=== PATIENT | male | born 1970 | race Caucasian/White ===

== ENCOUNTER 2023-06-07 19:20 | Inpatient (IN) | payer MEDICAID ==
[~2023-06-07] VITALS: Ht 177.8 cm; Wt 99.3 kg
[2023-06-08 00:58] LABS: HEMATOCRIT. 27.1 % (42.0-52.0); HEMOGLOBIN. 8.8 g/dL (14.0-18.0); MEAN CORPUSCULAR HEMOGLOBIN 27.7 pg (28.0-32.0); MEAN CORPUSCULAR HGB CONC 32.5 g/dL (31.0-37.0); MEAN CORPUSCULAR VOLUME 85.4 fL (80.0-94.0); MEAN PLATELET VOLUME 6.8 fl (7.4-10.4); PLATELET 644 x1000/uL (130-400); RED BLOOD CELL COUNT 3.17 mill/uL (4.7-6.1); RED CELL DISTRIBUTION WIDTH 14.8 % (11.6-14.6); WHITE BLOOD COUNT 36.5 x1000/uL (4.5-11.0)
[2023-06-08] MEDS: HYDROCODONE/ACETAMINOPHEN 5/325MG TABLET PO NR (01:04)
[2023-06-08 01:05] LABS: ALANINE AMINOTRANSFERASE 38 IU/L (10-49); ALBUMIN 2.4 g/dL (3.2-4.8); ASPARTATE AMINOTRANSFERASE 57 IU/L (<34); BILIRUBIN TOTAL 0.3 mg/dL (0.1-1.0); CALCIUM 7.9 mg/dL (8.7-10.4); CARBON DIOXIDE 28 mEq/L (21-32); CHLORIDE 96 mEq/L (98-107); CREATININE 0.6 mg/dL (0.6-1.3); GLUCOSE 116 mg/dL (70-105); POTASSIUM 3.2 mEq/L (3.5-5.1); SODIUM 128 mEq/L (136-145); UREA NITROGEN BLOOD 13 mg/dL (9-23)
[2023-06-08 01:10] LABS: DIFFERENTIAL COMMENT 1
[2023-06-08] MEDS ORDERED: PIPERACILLIN/TAZO 3.375G/50ML 50 ML IV SCH ×2 (01:15→14:00)
[2023-06-08 02:26] LABS: CREATINE KINASE 396 IU/L (46-171)
[2023-06-08 02:29] LABS: INR 1.1; PROTHROMBIN TIME 12.5 sec (9.6-11.0)
[2023-06-08 02:38] LABS: ETHANOL BLOOD < 10 mg/dL (<10)
[2023-06-08] MEDS: PIPERACILLIN/TAZO 3.375G/50ML 50 ML IV SCH ×2 (04:45→17:51)
[2023-06-08 05:29] LABS: PLATELET ESTIMATE INCREASED
[2023-06-08] MEDS: VANCOMYCIN 1G PREMIX 200 ML IV SCH (05:34)
[2023-06-08] MEDS: KETOROLAC 30MG/ML VIAL IV NR (06:35)
[2023-06-08] MEDS: KETOROLAC 30MG/ML VIAL IV STA (06:35)
[2023-06-08] MEDS: ONDANSETRON HCL 4MG/2ML INJ IV STA (06:36)
[2023-06-08 09:48] LABS: CLARITY URINE CLEAR (CLEAR); COLOR URINE YELLOW (YELLOW); GLUCOSE URINE NEGATIVE (NEGATIVE); KETONES URINE NEGATIVE (NEGATIVE); LEUKOCYTE ESTERASE URINE NEGATIVE (NEGATIVE); NITRITE URINE NEGATIVE (NEGATIVE); OCCULT BLOOD URINE 1+ (NEGATIVE); PROTEIN URINE NEGATIVE (NEGATIVE); SPECIFIC GRAVITY URINE 1.008 (1.005-1.030)
[2023-06-08 10:15] LABS: SQUAMOUS EPITHELIAL CELL URINE FEW /lpf (RARE/1+); WBC URINE 0-2 /hpf (0-2)
[2023-06-08 10:16] LABS: BACTERIA URINE TRACE; RBC URINE 0-2 /hpf (0-2)
[2023-06-08] MEDS ORDERED: ONDANSETRON HCL 4MG/2ML INJ IV PRN (10:30)
[2023-06-08] MEDS ORDERED: ACETAMINOPHEN 325MG TABLET PO PRN ×2 (10:30→18:45)
[2023-06-08 12:11] LABS: T4 FREE 0.97 ng/dL (0.89-1.76); THYROID STIMULATING HORMONE 1.18 uIU/mL (0.55-4.78)
[2023-06-08] MEDS: POTASSIUM CHLORIDE 20MEQ TABLET SR PO NR (12:23)
[2023-06-08] MEDS: SODIUM CHLORIDE 0.9% 1,000 ML IV SCH (12:23)
[2023-06-08 14:00] VITALS: BP 124/86; PULSE 101; RESP 16; TEMP 98.7
[2023-06-08 14:30] VITALS: BP 127/76; PULSE 104; RESP 19; TEMP 98.7
[2023-06-08 16:00] VITALS: BP 127/76; PULSE 104; RESP 18; TEMP 98.4
[2023-06-08] MEDS ORDERED: IPRATROPIUM/ALBUTEROL 0.5-3(2.5)MG/3ML NEB HHN PRN (18:45)
[2023-06-08 20:09] VITALS: BP 115/69; PULSE 112; RESP 21; TEMP 97.6
[2023-06-08] MEDS ORDERED: VANCOMYCIN 1G PREMIX 200 ML IV SCH (21:00)
[2023-06-08] MEDS: FAMOTIDINE 20MG TABLET PO SCH (21:44)
[2023-06-08] MEDS: VANCOMYCIN 1GM/200ML PMX (BAXTER) IV SCH (21:44)
[2023-06-08] MEDS ORDERED: DOCUSATE SODIUM 250MG CAPSULE PO PRN (22:30)
[2023-06-08] MEDS ORDERED: CLONIDINE 0.1MG TABLET PO PRN (22:30)
[2023-06-08] MEDS ORDERED: MAGNESIUM/ALUMINUM HYDROXIDE/SIMETHICONE 30ML UDC PO PRN (22:30)
[2023-06-08] MEDS ORDERED: GUAIFENESIN 200MG/10ML SUGAR FREE UDC PO PRN (22:30)
[2023-06-08 23:15] LABS: HEPATITIS B SURFACE ANTIGEN NEGATIVE (Negative); HEPATITIS C AB NON REACTIVE (Neg) (Negative)
[2023-06-09] VITALS: BP 125/76; PULSE 103; RESP 21; TEMP 98.3
[2023-06-09 04:00] VITALS: BP 140/87; PULSE 106; RESP 22; TEMP 97.6
[2023-06-09 07:26] LABS: HEMATOCRIT. 26.8 % (42.0-52.0); HEMOGLOBIN. 8.8 g/dL (14.0-18.0); MEAN CORPUSCULAR HEMOGLOBIN 28.5 pg (28.0-32.0); MEAN CORPUSCULAR VOLUME 86.3 fL (80.0-94.0); MEAN PLATELET VOLUME 6.8 fl (7.4-10.4); PLATELET 689 x1000/uL (130-400); RED CELL DISTRIBUTION WIDTH 15.3 % (11.6-14.6); WHITE BLOOD COUNT 32.7 x1000/uL (4.5-11.0)
[2023-06-09 07:28] LABS: DIFFERENTIAL COMMENT 1
[2023-06-09 08:00] VITALS: BP 141/82; PULSE 105; RESP 22; TEMP 97.3
[2023-06-09 08:51] LABS: ALANINE AMINOTRANSFERASE 25 IU/L (10-49); ALBUMIN 2.3 g/dL (3.2-4.8); ASPARTATE AMINOTRANSFERASE 28 IU/L (<34); BILIRUBIN TOTAL 0.2 mg/dL (0.1-1.0); CALCIUM 7.8 mg/dL (8.7-10.4); CARBON DIOXIDE 26 mEq/L (21-32); CHLORIDE 101 mEq/L (98-107); CREATINE KINASE 115 IU/L (46-171); CREATININE 0.5 mg/dL (0.6-1.3); GLUCOSE 80 mg/dL (70-105); POTASSIUM 3.7 mEq/L (3.5-5.1); PROTEIN TOTAL 5.8 g/dL (6.0-8.3); SODIUM 134 mEq/L (136-145); UREA NITROGEN BLOOD 12 mg/dL (9-23)
[2023-06-09 08:58] LABS: BILIRUBIN DIRECT < 0.1 mg/dL (<=3.0)
[2023-06-09] MEDS: PIPERONYL/PYRETHRINS (RID) 120 ML SHAMPOO TOP NR (10:16)
[2023-06-09 12:00] VITALS: BP 128/93; PULSE 108; RESP 21; TEMP 97.6
[2023-06-09 16:00] VITALS: BP 121/79; PULSE 119; TEMP 97.9
[2023-06-09 18:08] LABS: PLATELET ESTIMATE INCREASED
[2023-06-09 20:00] VITALS: BP 140/85; PULSE 112; RESP 22; TEMP 98.3
[2023-06-09] MEDS: NEOMY SULF/BACITRAC ZN/POLY OINT 28GM TOP SCH (22:07)
[2023-06-10] VITALS: BP 138/85; PULSE 108; RESP 21; TEMP 97.6
[2023-06-10 04:00] VITALS: BP 134/87; PULSE 104; RESP 20; TEMP 98.9
[2023-06-10 08:00] VITALS: BP 130/84; PULSE 100; RESP 22; TEMP 98.4
[2023-06-10] MEDS: KETOROLAC 15MG/ML VIAL IV PRN (09:29)
[2023-06-10 12:00] VITALS: BP 145/80; PULSE 95; RESP 20; TEMP 98.6
[2023-06-10 14:34] LABS: HEMATOCRIT 28.4 % (42.0-52.0); MEAN CORPUSCULAR HEMOGLOBIN 27.5 pg (28.0-32.0); MEAN CORPUSCULAR HGB CONC 31.7 g/dL (31.0-37.0); MEAN CORPUSCULAR VOLUME 86.6 fL (80.0-94.0); PLATELET 731 x1000/uL (130-400); RED BLOOD CELL COUNT 3.27 mill/uL (4.7-6.1); RED CELL DISTRIBUTION WIDTH 15.2 % (11.6-14.6); WHITE BLOOD COUNT 24.9 x1000/uL (4.5-11.0)
[2023-06-10 14:47] LABS: CALCIUM 7.4 mg/dL (8.7-10.4); CARBON DIOXIDE 29 mEq/L (21-32); CHLORIDE 102 mEq/L (98-107); CREATININE 0.5 mg/dL (0.6-1.3); GLUCOSE 116 mg/dL (70-105); SODIUM 133 mEq/L (136-145); UREA NITROGEN BLOOD 8 mg/dL (9-23)
[2023-06-10 16:00] VITALS: BP 151/97; PULSE 101; RESP 24; TEMP 97.8
[2023-06-10] MEDS ORDERED: VANCOMYCIN 1GM/200ML PMX (BAXTER) IV SCH (18:00)
[2023-06-10] MEDS: METRONIDAZOLE 500MG TABLET PO SCH (18:13)
[2023-06-10] MEDS: CEFAZOLIN 2GM/100ML 100 ML IV SCH (18:52)
[2023-06-10] MEDS: TETANUS, DIPHTHERIA, PERTUSSIS VAC/PF 0.5ML (>10YR OLD) IM ONE (18:52)
[2023-06-10 20:00] VITALS: BP 138/92; PULSE 104; RESP 20; TEMP 98
[2023-06-10] MEDS ORDERED: IOHEXOL-300 100 ML BOTTLE ONE (23:23)
[2023-06-11 04:00] VITALS: BP 143/90; PULSE 101; RESP 20; TEMP 98.2
[2023-06-11 08:00] VITALS: BP 125/80; PULSE 106; RESP 18; TEMP 98
[2023-06-11 09:06] LABS: HEMATOCRIT. 29.3 % (42.0-52.0); HEMOGLOBIN. 9.5 g/dL (14.0-18.0); MEAN CORPUSCULAR HEMOGLOBIN 27.6 pg (28.0-32.0); MEAN CORPUSCULAR HGB CONC 32.2 g/dL (31.0-37.0); MEAN CORPUSCULAR VOLUME 85.7 fL (80.0-94.0); MEAN PLATELET VOLUME 6.5 fl (7.4-10.4); PLATELET 730 x1000/uL (130-400); RED BLOOD CELL COUNT 3.42 mill/uL (4.7-6.1); RED CELL DISTRIBUTION WIDTH 14.8 % (11.6-14.6); WHITE BLOOD COUNT 21.5 x1000/uL (4.5-11.0)
[2023-06-11 09:09] LABS: DIFFERENTIAL COMMENT 1
[2023-06-11 09:23] LABS: CARBON DIOXIDE 29 mEq/L (21-32); CHLORIDE 101 mEq/L (98-107); CREATININE 0.5 mg/dL (0.6-1.3); GLUCOSE 96 mg/dL (70-105); POTASSIUM 3.9 mEq/L (3.5-5.1); SODIUM 134 mEq/L (136-145); UREA NITROGEN BLOOD 11 mg/dL (9-23)
[2023-06-11 12:00] VITALS: BP 147/86; PULSE 102; RESP 20; TEMP 98.2
[2023-06-11 16:00] VITALS: BP 129/77; PULSE 100; RESP 18; TEMP 98
[2023-06-11 16:31] LABS: PLATELET ESTIMATE INCREASED
[2023-06-11 20:00] VITALS: BP_SYST 132; BP_SYST 136; BP_DIAS 68; BP_DIAS 86; PULSE 101; PULSE 106; RESP 20; TEMP 97.3; TEMP 97.8
[2023-06-12] VITALS: BP 125/72; PULSE 99; RESP 20; TEMP 97.6
[2023-06-12 06:55] LABS: HEMATOCRIT 29.1 % (42.0-52.0); HEMOGLOBIN 9.5 g/dL (14.0-18.0); MEAN CORPUSCULAR HEMOGLOBIN 27.5 pg (28.0-32.0); MEAN CORPUSCULAR HGB CONC 32.5 g/dL (31.0-37.0); MEAN CORPUSCULAR VOLUME 84.5 fL (80.0-94.0); PLATELET 678 x1000/uL (130-400); RED BLOOD CELL COUNT 3.44 mill/uL (4.7-6.1); RED CELL DISTRIBUTION WIDTH 15.3 % (11.6-14.6); WHITE BLOOD COUNT 18.1 x1000/uL (4.5-11.0)
[2023-06-12 07:33] LABS: CALCIUM 7.5 mg/dL (8.7-10.4); CARBON DIOXIDE 27 mEq/L (21-32); CHLORIDE 98 mEq/L (98-107); CREATININE 0.5 mg/dL (0.6-1.3); GLUCOSE 84 mg/dL (70-105); SODIUM 128 mEq/L (136-145); UREA NITROGEN BLOOD 8 mg/dL (9-23)
[2023-06-12] MEDS ORDERED: TETRACAINE/BENZOCAINE/BUTAMBEN 20 GM SPRAY MM ONE (07:47)
[2023-06-12] MEDS ORDERED: LIDOCAINE 2% 6ML GLYDO MM ONE (07:47)
[2023-06-12 08:00] VITALS: BP 140/70; PULSE 97; RESP 21; TEMP 98
[2023-06-12] MEDS ORDERED: FENTANYL CITRATE/PF 50MCG/ML 2ML VIAL ONE ×2 (09:55→10:24)
[2023-06-12] MEDS ORDERED: MIDAZOLAM HCL 2 MG/2 ML VIAL ONE ×3 (09:55→10:19)
[2023-06-12] MEDS ORDERED: LIDOCAINE HCL 1% 20ML VIAL (Pyxis) INJ INFIL NR (10:00)
[2023-06-12 13:03] VITALS: BP 133/86; PULSE 90; RESP 21; TEMP 98.1
[2023-06-12 16:00] VITALS: BP 127/73; PULSE 99; RESP 22; TEMP 98.3
[2023-06-12 20:00] VITALS: PULSE 101; RESP 20; TEMP 97.9
[2023-06-12 21:18] VITALS: BP 127/76; PULSE 101; RESP 20; TEMP 97.9
[2023-06-13] VITALS (7 sets, daily range): BP systolic 112–153; BP diastolic 71–87; PULSE 96–109; RESP 17–22; TEMP 97.2–99
[2023-06-13 07:56] LABS: HEMATOCRIT 30.2 % (42.0-52.0); HEMOGLOBIN 9.9 g/dL (14.0-18.0); MEAN CORPUSCULAR HEMOGLOBIN 27.6 pg (28.0-32.0); MEAN CORPUSCULAR HGB CONC 32.8 g/dL (31.0-37.0); MEAN CORPUSCULAR VOLUME 84.2 fL (80.0-94.0); PLATELET 681 x1000/uL (130-400); RED BLOOD CELL COUNT 3.59 mill/uL (4.7-6.1); RED CELL DISTRIBUTION WIDTH 15.8 % (11.6-14.6); WHITE BLOOD COUNT 14.9 x1000/uL (4.5-11.0)
[2023-06-13 08:14] LABS: CALCIUM 7.9 mg/dL (8.7-10.4); CARBON DIOXIDE 27 mEq/L (21-32); CHLORIDE 101 mEq/L (98-107); CREATININE 0.5 mg/dL (0.6-1.3); GLUCOSE 85 mg/dL (70-105); POTASSIUM 4.3 mEq/L (3.5-5.1); SODIUM 133 mEq/L (136-145); UREA NITROGEN BLOOD 10 mg/dL (9-23)
[2023-06-14] VITALS: BP 118/72; PULSE 98; RESP 18; TEMP 98.4
[2023-06-14 04:00] VITALS: BP 127/79; PULSE 102; RESP 15; TEMP 98.7
[2023-06-14 07:06] LABS: BASOPHILS % 0.3 % (0.0-2.0); EOSINOPHILS % 0.5 % (0.0-5.0); HEMATOCRIT. 30.2 % (42.0-52.0); LYMPHOCYTES % 11.5 % (20.0-50.0); MEAN CORPUSCULAR HGB CONC 32.9 g/dL (31.0-37.0); MEAN PLATELET VOLUME 6.6 fl (7.4-10.4); NEUTROPHILS % 80.7 % (40.0-76.0); PLATELET 699 x1000/uL (130-400); RED BLOOD CELL COUNT 3.56 mill/uL (4.7-6.1); RED CELL DISTRIBUTION WIDTH 15.9 % (11.6-14.6); WHITE BLOOD COUNT 12.1 x1000/uL (4.5-11.0)
[2023-06-14 07:22] LABS: CARBON DIOXIDE 26 mEq/L (21-32); CHLORIDE 100 mEq/L (98-107); CREATININE 0.5 mg/dL (0.6-1.3); GLUCOSE 90 mg/dL (70-105); POTASSIUM 4.8 mEq/L (3.5-5.1); SODIUM 131 mEq/L (136-145); UREA NITROGEN BLOOD 14 mg/dL (9-23)
[2023-06-14 08:10] VITALS: BP 124/84; PULSE 99; RESP 16; TEMP 98.5
[2023-06-14] MEDS: SODIUM CHLORIDE 0.9% 1,000 ML IV ONE (12:00)
[2023-06-14 16:00] VITALS: BP 112/69; PULSE 80; RESP 20; TEMP 97.4
[2023-06-14 20:00] VITALS: BP 110/65; PULSE 104; RESP 19; TEMP 98.3
[2023-06-15] VITALS: BP 107/72; PULSE 101; RESP 19; TEMP 98
[2023-06-15 04:00] VITALS: BP 107/71; PULSE 98; RESP 19; TEMP 97.7
[2023-06-15 06:19] LABS: HEMOGLOBIN 10.1 g/dL (14.0-18.0); MEAN CORPUSCULAR HEMOGLOBIN 27.3 pg (28.0-32.0); MEAN CORPUSCULAR HGB CONC 32.7 g/dL (31.0-37.0); MEAN CORPUSCULAR VOLUME 83.6 fL (80.0-94.0); PLATELET 646 x1000/uL (130-400); RED BLOOD CELL COUNT 3.71 mill/uL (4.7-6.1); RED CELL DISTRIBUTION WIDTH 16.1 % (11.6-14.6); WHITE BLOOD COUNT 12.5 x1000/uL (4.5-11.0)
[2023-06-15 06:52] LABS: CARBON DIOXIDE 25 mEq/L (21-32); CHLORIDE 99 mEq/L (98-107); CREATININE 0.6 mg/dL (0.6-1.3); GLUCOSE 87 mg/dL (70-105); POTASSIUM 4.8 mEq/L (3.5-5.1); SODIUM 129 mEq/L (136-145); UREA NITROGEN BLOOD 21 mg/dL (9-23)
[2023-06-15] MEDS ORDERED: SODIUM CHLORIDE 0.9% 1,000 ML IV ONE (07:45)
[2023-06-15] MEDS ORDERED: LINE600T14 PO (14:26)
[2023-06-15] MEDS ORDERED: FAMO20TA8 PO (14:26)
[2023-06-15 14:44] VITALS: BP 103/72; PULSE 102; TEMP 98.2; O2SAT 100
== END 2023-06-15 15:17 | disposition home or self-care (01) | DRG 720 ==
LOC: ER 19:20 → EDBD 06-08 02:48 → 5WST 06-08 02:48 → 3WST 06-08 15:38 → 6EST 06-14 13:10
PROVIDERS: ADMIT Internal Medicine; ATTEND Internal Medicine
PROC: B24BZZ4 Ultrasonography of Heart with Aorta, Transesophageal (ICD-10-PCS; principal; 2023-06-12)
DX: A41.9 Sepsis, unspecified organism (principal); E43 Unspecified severe protein-calorie malnutrition; J90 Pleural effusion, not elsewhere classified; R18.8 Other ascites; S71.152A Open bite, left thigh, initial encounter; E87.1 Hypo-osmolality and hyponatremia; E87.8 Other disorders of electrolyte and fluid balance, not elsewhere classified; L03.116 Cellulitis of left lower limb; B85.2 Pediculosis, unspecified; L03.113 Cellulitis of right upper limb; D64.9 Anemia, unspecified; E87.6 Hypokalemia; M16.0 Bilateral primary osteoarthritis of hip; F10.10 Alcohol abuse, uncomplicated; F19.10 Other psychoactive substance abuse, uncomplicated; L98.499 Non-pressure chronic ulcer of skin of other sites with unspecified severity; L02.413 Cutaneous abscess of right upper limb; K40.90 Unilateral inguinal hernia, without obstruction or gangrene, not specified as recurrent; J98.11 Atelectasis; E87.70 Fluid overload, unspecified; I49.1 Atrial premature depolarization; G89.29 Other chronic pain; F17.210 Nicotine dependence, cigarettes, uncomplicated; D75.839 Thrombocytosis, unspecified; Z59.00 Homelessness unspecified; B95.61 Methicillin susceptible Staphylococcus aureus infection as the cause of diseases classified elsewhere; Z68.31 Body mass index [BMI] 31.0-31.9, adult; W54.0XXA Bitten by dog, initial encounter; Y93.89 Activity, other specified; Y92.89 Other specified places as the place of occurrence of the external cause; Y99.8 Other external cause status
CPT/HCPCS: 36415; 71045; 73060; 73080; 73090; 73110; 73130; 73502; 73523; 80048; 80053; 80061; 80076; 80202; 80320; 81003; 82550; 83605; 83880; 84145; 84439; 84443; 85025; 85027; 85651; 86705; 87077; 87186; 87340; 90715; 93005; 93306; 93312; 93971; 97162; 97530; 99285; J0690; J1885; J2250; J2543; J3010; J3370; J3490; J7030; Q9967; G0480